=== PATIENT | male | born 1970 | race African-American/Black ===

== ENCOUNTER 2016-09-19 18:38 | Emergency (ER) | payer MEDICAID ==
[~2016-09-19] VITALS: Ht 170.2 cm; Wt 76.0 kg
[~2016-09-19 18:38] MED LIST: ABIL5 PO; Folic Acid PO; HYDROCODONE; IBUPROFEN PO; Metoprolol Tartrate PO; Multivitamins,Ther W-Minerals PO; PHEN100C4 PO; RISP0.5T PO
[2016-09-19] MEDS ORDERED: LIDOCAINE HCL 1% 20ML VIAL (Pyxis) INJ MC ONE (19:00)
[2016-09-19 19:08] LABS: BASOPHILS % 0.6 % (0.0-2.0); EOSINOPHILS % 0.7 % (0.0-5.0); HEMOGLOBIN. 10.8 g/dL (14.0-18.0); LYMPHOCYTES % 26.7 % (20.0-50.0); MEAN CORPUSCULAR HEMOGLOBIN 32.5 pg (28.0-32.0); MEAN CORPUSCULAR VOLUME 96.3 fL (80.0-94.0); MEAN PLATELET VOLUME 7.5 fl (7.4-10.4); MONOCYTES % 9.3 % (2.0-8.0); NEUTROPHILS % 62.7 % (40.0-76.0); PLATELET 78 x1000/uL (130-400); RED BLOOD CELL COUNT 3.32 mill/uL (4.7-6.1); RED CELL DISTRIBUTION WIDTH 15.5 % (11.6-14.6)
[2016-09-19 19:17] LABS: CARBON DIOXIDE 19 mEq/L (21-32); CHLORIDE 97 mEq/L (98-107); ETHANOL BLOOD 11 mg/dL
[2016-09-19 19:20] LABS: PHENYTOIN < 0.4 ug/mL (10-20)
[2016-09-19] MEDS ORDERED: PHENYTOIN SODIUM 1,000 MG in SODIUM CHLORIDE 0.9% 100 ML IV ONE (19:30)
[2016-09-19 20:59] LABS: CLARITY URINE CLEAR (CLEAR); COLOR URINE YELLOW (YELLOW); GLUCOSE URINE NEGATIVE (NEGATIVE); KETONES URINE NEGATIVE (NEGATIVE); LEUKOCYTE ESTERASE URINE NEGATIVE (NEGATIVE); NITRITE URINE NEGATIVE (NEGATIVE); OCCULT BLOOD URINE NEGATIVE (NEGATIVE); PROTEIN URINE 2+ (NEGATIVE); SPECIFIC GRAVITY URINE 1.017 (1.005-1.030)
[2016-09-19 21:13] LABS: *AMPHETAMINES SCREEN URINE NEGATIVE (NEGATIVE); *BARBITURATES SCREEN URINE NEGATIVE (NEGATIVE); *BENZODIAZEPINES SCREEN URINE NEGATIVE (NEGATIVE); *COCAINE SCREEN URINE NEGATIVE (NEGATIVE); CANNABINOID URINE SCREEN PRESUMTIVE POSITIVE (NEGATIVE); METHADONE URINE SCREEN NEGATIVE (NEGATIVE); OPIATES URINE SCREEN NEGATIVE (NEGATIVE); PHENCYCLIDINE URINE SCREEN NEGATIVE (NEGATIVE)
[2016-09-19 22:15] VITALS: BP 150/88
== END 2016-09-19 22:15 | disposition home or self-care (01) ==
LOC: ER 18:58
DX: R56.9 Unspecified convulsions (principal); S00.01XA Abrasion of scalp, initial encounter; H66.92 Otitis media, unspecified, left ear; I10 Essential (primary) hypertension; R79.1 Abnormal coagulation profile; W18.30XA Fall on same level, unspecified, initial encounter; Y93.89 Activity, other specified; Y92.89 Other specified places as the place of occurrence of the external cause; Y99.8 Other external cause status
CPT/HCPCS: 36415; 70450; 72125; 80053; 80185; 80305; 81001; 85025; 96365; 96366; 99285; G0482; J1165; J7040; J3490; J7050

== ENCOUNTER 2016-10-18 15:03 | Inpatient (IN) | payer MEDICAID, OTHER ==
[~2016-10-18] VITALS: Ht 170.2 cm; Wt 68.9 kg
[~2016-10-18 15:03] MED LIST changes: +IOHEXOL-300 100 ML BOTTLE ONE; +SODIUM CHLORIDE 0.9% 10ML VIAL ONE
[2016-10-18] MEDS ORDERED: SODIUM CHLORIDE 0.9% 1,000 ML IV ONE (15:27)
[2016-10-18] MEDS ORDERED: PANTOPRAZOLE SODIUM 40 MG/VIAL IV STA (15:27)
[2016-10-18 15:50] LABS: BASOPHILS % 0.4 % (0.0-2.0); EOSINOPHILS % 1.3 % (0.0-5.0); HEMATOCRIT. 34.2 % (42.0-52.0); HEMOGLOBIN. 12.1 g/dL (14.0-18.0); LYMPHOCYTES % 25.2 % (20.0-50.0); MEAN CORPUSCULAR HEMOGLOBIN 33.3 pg (28.0-32.0); MEAN CORPUSCULAR VOLUME 93.7 fL (80.0-94.0); MEAN PLATELET VOLUME 8.1 fl (7.4-10.4); MONOCYTES % 7.7 % (2.0-8.0); NEUTROPHILS % 65.4 % (40.0-76.0); PLATELET 61 x1000/uL (130-400); RED BLOOD CELL COUNT 3.65 mill/uL (4.7-6.1); RED CELL DISTRIBUTION WIDTH 13.3 % (11.6-14.6)
[2016-10-18 16:00] LABS: CARBON DIOXIDE 31 mEq/L (21-32); CHLORIDE 94 mEq/L (98-107); ETHANOL BLOOD < 10 mg/dL
[2016-10-18 16:07] LABS: PROTHROMBIN TIME 10.5 sec
[2016-10-18] MEDS ORDERED: SODIUM CHLORIDE 0.9% 1000ML BAG (SEPSIS BOLUS) IV ONE (16:15)
[2016-10-18] MEDS ORDERED: CEFTRIAXONE 1 G PREMIX 50 ML IV ONE (16:30)
[2016-10-18 17:16] LABS: CLARITY URINE CLEAR (CLEAR); COLOR URINE DARK YELLOW (YELLOW); GLUCOSE URINE NEGATIVE (NEGATIVE); KETONES URINE TRACE (NEGATIVE); LEUKOCYTE ESTERASE URINE NEGATIVE (NEGATIVE); NITRITE URINE NEGATIVE (NEGATIVE); OCCULT BLOOD URINE NEGATIVE (NEGATIVE); PH URINE 5.5 (4.5-8.0); PROTEIN URINE 2+ (NEGATIVE); SPECIFIC GRAVITY URINE 1.018 (1.005-1.030)
[2016-10-18 17:36] LABS: *AMPHETAMINES SCREEN URINE NEGATIVE (NEGATIVE); *BARBITURATES SCREEN URINE NEGATIVE (NEGATIVE); *BENZODIAZEPINES SCREEN URINE NEGATIVE (NEGATIVE); *COCAINE SCREEN URINE NEGATIVE (NEGATIVE); CANNABINOID URINE SCREEN PRESUMTIVE POSITIVE (NEGATIVE); METHADONE URINE SCREEN NEGATIVE (NEGATIVE); OPIATES URINE SCREEN PRESUMTIVE POSITIVE (NEGATIVE); PHENCYCLIDINE URINE SCREEN NEGATIVE (NEGATIVE)
[2016-10-18] MEDS ORDERED: POTASSIUM CHLORIDE 20MEQ TABLET SR PO ONE (18:30)
[2016-10-18] MEDS ORDERED: MAGNESIUM/ALUMINUM HYDROXIDE/SIMETHICONE 30ML UDC PO PRN (19:15)
[2016-10-18] MEDS ORDERED: IPRATROPIUM/ALBUTEROL 0.5-3(2.5)MG/3ML NEB INH PRN (19:15)
[2016-10-18] MEDS ORDERED: LORAZEPAM 2MG/ML CPJ IV PRN (19:15)
[2016-10-18] MEDS ORDERED: ONDANSETRON HCL 4MG/2ML VIAL IV PRN (19:15)
[2016-10-18] MEDS ORDERED: ACETAMINOPHEN 325MG TABLET PO PRN (19:15)
[2016-10-18] MEDS ORDERED: DOCUSATE SODIUM 100MG CAPSULE PO PRN (19:15)
[2016-10-18] MEDS ORDERED: GUAIFENESIN 200MG/10ML SUGAR FREE UDC PO PRN (19:15)
[2016-10-18] MEDS: HYDROCODONE/ACETAMINOPHEN 5/325MG TABLET PO PRN (21:11)
[2016-10-18] MEDS: SODIUM CHLORIDE 0.9% 1,000 ML IV SCH (22:40)
[2016-10-18 23:00] VITALS: BP 165/110
[2016-10-19] VITALS: BP 145/103
[2016-10-19] MEDS: CLONIDINE 0.1MG TABLET PO PRN ×3 (00:17→19:57)
[2016-10-19] MEDS ORDERED: MVI, ADULT NO.1 10 ML, FOLIC ACID 1 MG, THIAMINE HCL 100 MG in SODIUM CHLORIDE 0.9% 1,0... IV NR ×4 (02:00)
[2016-10-19 04:00] VITALS: BP 148/102
[2016-10-19 06:34] LABS: T4 FREE 0.84 ng/dL (0.76-1.46)
[2016-10-19 08:00] VITALS: BP 153/105
[2016-10-19] MEDS: HYDROCODONE/ACETAMINOPHEN 5/325MG TABLET PO PRN ×3 (09:14→20:00)
[2016-10-19 12:00] VITALS: BP 147/109
[2016-10-19] MEDS: SODIUM CHLORIDE 0.9% 1,000 ML IV SCH ×2 (15:59→16:00)
[2016-10-19 16:00] VITALS: BP 144/96
[2016-10-19 20:00] VITALS: BP 157/111
[2016-10-20] VITALS: BP 160/109
[2016-10-20] MEDS: CLONIDINE 0.1MG TABLET PO PRN ×2 (00:58→08:14)
[2016-10-20] MEDS: SODIUM CHLORIDE 0.9% 1,000 ML IV SCH ×3 (00:59→20:22)
[2016-10-20 04:00] VITALS: BP 139/96
[2016-10-20 07:02] LABS: CARBON DIOXIDE 30 mEq/L (21-32); CHLORIDE 99 mEq/L (98-107)
[2016-10-20 08:00] VITALS: BP 192/124
[2016-10-20 09:50] LABS: BASOPHILS % 0.7 % (0.0-2.0); EOSINOPHILS % 3.2 % (0.0-5.0); HEMATOCRIT. 30.2 % (42.0-52.0); HEMOGLOBIN. 10.5 g/dL (14.0-18.0); LYMPHOCYTES % 35.5 % (20.0-50.0); MEAN CORPUSCULAR HEMOGLOBIN 32.8 pg (28.0-32.0); MEAN CORPUSCULAR VOLUME 94.6 fL (80.0-94.0); MONOCYTES % 9.7 % (2.0-8.0); NEUTROPHILS % 50.9 % (40.0-76.0); RED BLOOD CELL COUNT 3.19 mill/uL (4.7-6.1); RED CELL DISTRIBUTION WIDTH 13.4 % (11.6-14.6)
[2016-10-20 09:55] LABS: PLATELET 38 x1000/uL (130-400)
[2016-10-20] MEDS ORDERED: POTASSIUM CHLORIDE 20MEQ TABLET SR PO NR ×2 (10:45→12:00)
[2016-10-20 11:37] LABS: PLATELET ESTIMATE MARKEDLY DECREASED
[2016-10-20 12:00] VITALS: BP 145/104
[2016-10-20] MEDS ORDERED: LORAZEPAM 2MG/ML CPJ IM PRN (12:00)
[2016-10-20] MEDS: FOLIC ACID 1MG TABLET PO SCH (12:47)
[2016-10-20] MEDS: MULTIVITAMINS,THER W-MINERALS TABLET PO SCH (12:48)
[2016-10-20] MEDS: NIFEDIPINE XL 60MG TAB PO SCH (12:49)
[2016-10-20] MEDS: THIAMINE HCL 100MG TABLET PO SCH (12:54)
[2016-10-20] MEDS: HYDROCODONE/ACETAMINOPHEN 5/325MG TABLET PO PRN ×2 (12:54→20:23)
[2016-10-20] MEDS: CHLORDIAZEPOXIDE 25MG CAPSULE PO SCH ×2 (14:12→21:32)
[2016-10-20 16:00] VITALS: BP 151/106
[2016-10-20 20:00] VITALS: BP 133/91
[2016-10-20] MEDS: LEVETIRACETAM 500MG/5ML CUP PO SCH (21:32)
[2016-10-21] VITALS: BP 128/87
[2016-10-21 04:00] VITALS: BP 125/85
[2016-10-21 06:17] LABS: BASOPHILS % 0.7 % (0.0-2.0); EOSINOPHILS % 3.9 % (0.0-5.0); HEMATOCRIT. 28.5 % (42.0-52.0); HEMOGLOBIN. 9.8 g/dL (14.0-18.0); LYMPHOCYTES % 40.6 % (20.0-50.0); MEAN CORPUSCULAR HEMOGLOBIN 32.8 pg (28.0-32.0); MEAN CORPUSCULAR VOLUME 95.3 fL (80.0-94.0); MEAN PLATELET VOLUME 8.9 fl (7.4-10.4); MONOCYTES % 10.1 % (2.0-8.0); NEUTROPHILS % 44.7 % (40.0-76.0); RED BLOOD CELL COUNT 2.99 mill/uL (4.7-6.1); RED CELL DISTRIBUTION WIDTH 13.2 % (11.6-14.6)
[2016-10-21] MEDS: CHLORDIAZEPOXIDE 25MG CAPSULE PO SCH ×3 (06:20→21:59)
[2016-10-21] MEDS: SODIUM CHLORIDE 0.9% 1,000 ML IV SCH ×2 (06:21→18:14)
[2016-10-21 07:12] LABS: AMYLASE 95 IU/L (25-115); CARBON DIOXIDE 26 mEq/L (21-32); CHLORIDE 103 mEq/L (98-107)
[2016-10-21 08:00] VITALS: BP 138/96
[2016-10-21 08:08] LABS: PLATELET 43 x1000/uL (130-400)
[2016-10-21] MEDS: NIFEDIPINE XL 60MG TAB PO SCH (09:27)
[2016-10-21] MEDS: MULTIVITAMINS,THER W-MINERALS TABLET PO SCH (09:27)
[2016-10-21] MEDS: FOLIC ACID 1MG TABLET PO SCH (09:27)
[2016-10-21] MEDS: THIAMINE HCL 100MG TABLET PO SCH (09:27)
[2016-10-21] MEDS: LEVETIRACETAM 500MG/5ML CUP PO SCH ×2 (09:27→20:35)
[2016-10-21] MEDS ORDERED: MAGNESIUM 2 G PREMIX 50 ML IV NR (09:30)
[2016-10-21] MEDS: HYDROCODONE/ACETAMINOPHEN 5/325MG TABLET PO PRN ×2 (09:57→20:36)
[2016-10-21] MEDS ORDERED: LORAZEPAM 2MG/ML CPJ IV PRN (11:13)
[2016-10-21] MEDS ORDERED: POTASSIUM CHLORIDE 20MEQ TABLET SR PO SCH (11:45)
[2016-10-21 12:00] VITALS: BP 130/94
[2016-10-21 16:00] VITALS: BP 139/94
[2016-10-21 20:00] VITALS: BP 122/82
[2016-10-22] VITALS: BP 134/91
[2016-10-22 04:00] VITALS: BP 116/77
[2016-10-22] MEDS: CHLORDIAZEPOXIDE 25MG CAPSULE PO SCH ×3 (06:34→21:31)
[2016-10-22] MEDS: SODIUM CHLORIDE 0.9% 1,000 ML IV SCH ×2 (06:34→11:26)
[2016-10-22 07:55] LABS: CARBON DIOXIDE 28 mEq/L (21-32); CHLORIDE 104 mEq/L (98-107); TOTAL IRON BINDING CAPACITY 252 ug/dL (250-450)
[2016-10-22 07:58] LABS: AMYLASE 70 IU/L (25-115)
[2016-10-22 08:00] VITALS: BP 133/91
[2016-10-22 08:10] LABS: HEMATOCRIT. 29.5 % (42.0-52.0); MEAN CORPUSCULAR HEMOGLOBIN 32.6 pg (28.0-32.0); MEAN PLATELET VOLUME 8.8 fl (7.4-10.4); PLATELET 67 x1000/uL (130-400); RED BLOOD CELL COUNT 3.07 mill/uL (4.7-6.1); RED CELL DISTRIBUTION WIDTH 13.6 % (11.6-14.6)
[2016-10-22] MEDS: FOLIC ACID 1MG TABLET PO SCH (08:44)
[2016-10-22] MEDS: NIFEDIPINE XL 60MG TAB PO SCH (08:44)
[2016-10-22] MEDS: LEVETIRACETAM 500MG/5ML CUP PO SCH ×2 (08:44→21:31)
[2016-10-22] MEDS: THIAMINE HCL 100MG TABLET PO SCH (08:44)
[2016-10-22] MEDS: MULTIVITAMINS,THER W-MINERALS TABLET PO SCH (08:45)
[2016-10-22 11:30] LABS: PLATELET ESTIMATE DECREASED
[2016-10-22] MEDS: HYDROCODONE/ACETAMINOPHEN 5/325MG TABLET PO PRN ×2 (12:13→21:32)
[2016-10-22 16:00] VITALS: BP 126/87
[2016-10-22 20:00] VITALS: BP 127/81
[2016-10-22] MEDS ORDERED: MAGNESIUM 2 G PREMIX 50 ML IV NR (20:00)
[2016-10-23] MEDS: SODIUM CHLORIDE 0.9% 1,000 ML IV SCH (01:51)
[2016-10-23 04:00] VITALS: BP 162/60
[2016-10-23] MEDS: CHLORDIAZEPOXIDE 25MG CAPSULE PO SCH (06:00)
[2016-10-23 06:33] LABS: HEMATOCRIT. 28.7 % (42.0-52.0); HEMOGLOBIN. 9.8 g/dL (14.0-18.0); MEAN CORPUSCULAR HEMOGLOBIN 32.8 pg (28.0-32.0); MEAN CORPUSCULAR VOLUME 95.6 fL (80.0-94.0); MEAN PLATELET VOLUME 8.9 fl (7.4-10.4); PLATELET 92 x1000/uL (130-400); RED CELL DISTRIBUTION WIDTH 13.5 % (11.6-14.6)
[2016-10-23 07:15] LABS: CHLORIDE 104 mEq/L (98-107)
[2016-10-23 07:21] LABS: AMYLASE 100 IU/L (25-115); CARBON DIOXIDE 26 mEq/L (21-32)
[2016-10-23 08:00] VITALS: BP 154/94
[2016-10-23] MEDS: MULTIVITAMINS,THER W-MINERALS TABLET PO SCH (08:14)
[2016-10-23] MEDS: NIFEDIPINE XL 60MG TAB PO SCH (08:14)
[2016-10-23] MEDS: LEVETIRACETAM 500MG/5ML CUP PO SCH (08:14)
[2016-10-23] MEDS: THIAMINE HCL 100MG TABLET PO SCH (08:14)
[2016-10-23] MEDS: FOLIC ACID 1MG TABLET PO SCH (08:14)
[2016-10-23 12:11] VITALS: BP 135/86
[2016-10-23 13:14] VITALS: BP 135/86
[2016-10-23 14:16] LABS: PLATELET ESTIMATE DECREASED
== END 2016-10-23 13:45 | disposition home or self-care (01) | DRG 282 ==
LOC: ER 15:04 → 5WST 16:25 → EDBEDREQ 16:28 → ENRESERV 19:59
PROVIDERS: ADMIT Internal Medicine; ATTEND Internal Medicine
DX: K85.20 Alcohol induced acute pancreatitis without necrosis or infection (principal); D61.818 Other pancytopenia; D68.4 Acquired coagulation factor deficiency; E87.8 Other disorders of electrolyte and fluid balance, not elsewhere classified; D69.59 Other secondary thrombocytopenia; K74.60 Unspecified cirrhosis of liver; K92.2 Gastrointestinal hemorrhage, unspecified; R56.9 Unspecified convulsions; K76.0 Fatty (change of) liver, not elsewhere classified; E83.42 Hypomagnesemia; J44.9 Chronic obstructive pulmonary disease, unspecified; D64.9 Anemia, unspecified; E87.6 Hypokalemia; F10.20 Alcohol dependence, uncomplicated; Y90.0 Blood alcohol level of less than 20 mg/100 ml; F17.210 Nicotine dependence, cigarettes, uncomplicated; I10 Essential (primary) hypertension; K21.9 Gastro-esophageal reflux disease without esophagitis; F12.10 Cannabis abuse, uncomplicated; K86.1 Other chronic pancreatitis; Z79.899 Other long term (current) drug therapy; Z59.0 Homelessness
CPT/HCPCS: 36415; 74178; 80048; 80053; 80305; 81001; 82150; 82270; 82728; 83540; 83550; 83605; 83690; 83735; 84439; 84443; 85025; 85610; 87040; 87086; 87186; 87493; 93005; 96361; 96365; 96375; 99285; A4216; C1893; C9113; G0482; J0696; J3411; J3475; J3490; J7030; Q9967

== ENCOUNTER 2019-10-26 16:40 | Emergency (ER) | payer MEDICAID ==
[~2019-10-26] VITALS: Ht 170.2 cm; Wt 68.0 kg
[~2019-10-26 16:40] MED LIST changes: -IOHEXOL-300 100 ML BOTTLE ONE; -RISP0.5T PO; +RISP05 PO; -SODIUM CHLORIDE 0.9% 10ML VIAL ONE
[2019-10-26 20:11] VITALS: BP 140/70
== END 2019-10-26 20:18 | disposition home or self-care (01) ==
LOC: ER 16:40
DX: Z76.0 Encounter for issue of repeat prescription (principal); G40.909 Epilepsy, unspecified, not intractable, without status epilepticus; I10 Essential (primary) hypertension; Z86.19 Personal history of other infectious and parasitic diseases
CPT/HCPCS: 99281

== ENCOUNTER 2020-05-05 09:59 | Emergency (ER) | payer MEDICAID ==
[~2020-05-05] VITALS: Ht 170.2 cm; Wt 67.0 kg
[2020-05-05 10:09] VITALS: BP 134/69
[2020-05-05] MEDS ORDERED: FLUORESCEIN SODIUM 1MG/STRIP RIGHTEYE ONE (10:15)
[2020-05-05] MEDS ORDERED: ACETAMINOPHEN 325MG TABLET PO ONE (10:15)
[2020-05-05] MEDS ORDERED: TETRACAINE 0.5% OPHTH DROPS 4ML RIGHTEYE ONE (11:15)
== END 2020-05-05 14:48 | disposition home or self-care (01) ==
LOC: ER 10:09
DX: S05.01XA Injury of conjunctiva and corneal abrasion without foreign body, right eye, initial encounter (principal); R56.9 Unspecified convulsions; X58.XXXA Exposure to other specified factors, initial encounter; Y93.89 Activity, other specified; Y92.9 Unspecified place or not applicable
CPT/HCPCS: 99284

== ENCOUNTER 2021-09-03 18:04 | Inpatient (IN) | payer MEDICAID ==
[~2021-09-03] VITALS: Ht 170.2 cm; Wt 63.5 kg
[2021-09-03 19:45] LABS: BASOPHILS % 0.4 % (0.0-2.0); HEMATOCRIT. 40.1 % (42.0-52.0); HEMOGLOBIN. 13.9 g/dL (14.0-18.0); LYMPHOCYTES % 7.4 % (20.0-50.0); MEAN CORPUSCULAR HEMOGLOBIN 31.2 pg (28.0-32.0); MEAN PLATELET VOLUME 7.4 fl (7.4-10.4); MONOCYTES % 2.9 % (2.0-8.0); NEUTROPHILS % 89.3 % (40.0-76.0); PLATELET 147 x1000/uL (130-400); RED BLOOD CELL COUNT 4.45 mill/uL (4.7-6.1); RED CELL DISTRIBUTION WIDTH 13.7 % (11.6-14.6)
[2021-09-03 19:52] LABS: CHLORIDE 97 mEq/L (98-107)
[2021-09-04] MEDS ORDERED: ONDANSETRON HCL 4MG/2ML INJ IV STA (01:12)
[2021-09-04] MEDS ORDERED: MORPHINE SULFATE 4 MG/ML CPJ (NOT FOR IM USE) IV STA (01:12)
[2021-09-04] MEDS ORDERED: SODIUM CHLORIDE 0.9% 1,000 ML IV ONE (01:15)
[2021-09-04] MEDS ORDERED: MORPHINE SULFATE 4 MG/ML CPJ (NOT FOR IM USE) IV ONE (05:45)
[2021-09-04] MEDS ORDERED: MORPHINE SULFATE 4 MG/ML CPJ (NOT FOR IM USE) IV NR (06:00)
[2021-09-04 09:12] LABS: CLARITY URINE CLEAR (CLEAR); COLOR URINE YELLOW (YELLOW); KETONES URINE 1+ (NEGATIVE); LEUKOCYTE ESTERASE URINE NEGATIVE (NEGATIVE); NITRITE URINE NEGATIVE (NEGATIVE); OCCULT BLOOD URINE NEGATIVE (NEGATIVE); PROTEIN URINE 1+ (NEGATIVE); SPECIFIC GRAVITY URINE 1.019 (1.005-1.030)
[2021-09-04] MEDS ORDERED: ONDANSETRON HCL 4MG/2ML INJ IV PRN (11:00)
[2021-09-04] MEDS ORDERED: LORAZEPAM 0.5MG TABLET PO PRN (11:00)
[2021-09-04] MEDS: SODIUM CHLORIDE 0.9% 1,000 ML IV SCH ×2 (11:00→22:58)
[2021-09-04] MEDS ORDERED: IPRATROPIUM/ALBUTEROL 0.5-3(2.5)MG/3ML NEB HHN PRN (11:00)
[2021-09-04] MEDS ORDERED: ACETAMINOPHEN 325MG TABLET PO PRN (11:00)
[2021-09-04] MEDS ORDERED: PANTOPRAZOLE SODIUM 40 MG/VIAL IV SCH (11:00)
[2021-09-04 11:06] VITALS: BP 174/84
[2021-09-04] MEDS ORDERED: *PATIENT'S OWN MEDICATION STORAGE XX SCH (11:15)
[2021-09-04 12:00] VITALS: BP 153/93
[2021-09-04] MEDS ORDERED: PHEN50TA2 PO (12:43)
[2021-09-04] MEDS ORDERED: P20 MT (12:43)
[2021-09-04] MEDS ORDERED: PRED5DRO22 BOTHEYE (12:43)
[2021-09-04] MEDS ORDERED: AMLO5TAB88 PO (12:43)
[2021-09-04] MEDS ORDERED: ASOU BOTHEYE (12:43)
[2021-09-04] MEDS ORDERED: METF-416 MT (12:43)
[2021-09-04] MEDS ORDERED: KCL 20MEQ/100ML PREMIX 100 ML IV NR (13:00)
[2021-09-04] MEDS: MORPHINE SULFATE 2 MG/ML CPJ (NOT FOR IM USE) IV PRN (13:17)
[2021-09-04] MEDS: ARIPIPRAZOLE 5MG TABLET PO SCH (13:30)
[2021-09-04] MEDS ORDERED: PHENYTOIN SODIUM 100MG/2ML VIAL IV NR (13:45)
[2021-09-04] MEDS: MULTIVITAMINS,THER W-MINERALS TABLET PO SCH (13:58)
[2021-09-04] MEDS: CHLORDIAZEPOXIDE 25MG CAPSULE PO SCH ×2 (13:58→22:51)
[2021-09-04] MEDS: FOLIC ACID 1MG TABLET PO SCH (13:58)
[2021-09-04] MEDS: THIAMINE HCL 100MG TABLET PO SCH (13:58)
[2021-09-04] MEDS: PHENYTOIN SODIUM 100MG/2ML VIAL IV SCH ×2 (13:59→23:07)
[2021-09-04] MEDS: AMLODIPINE 5MG TABLET PO SCH (13:59)
[2021-09-04] MEDS: NICOTINE 7MG PATCH TD SCH (15:46)
[2021-09-04 16:00] VITALS: BP 169/96
[2021-09-04 17:09] LABS: *AMPHETAMINES SCREEN URINE NEGATIVE (NEGATIVE); *BARBITURATES SCREEN URINE NEGATIVE (NEGATIVE); *BENZODIAZEPINES SCREEN URINE NEGATIVE (NEGATIVE); *COCAINE SCREEN URINE NEGATIVE (NEGATIVE); CANNABINOID URINE SCREEN PRESUMTIVE POSITIVE (NEGATIVE); METHADONE URINE SCREEN NEGATIVE (NEGATIVE); OPIATES URINE SCREEN PRESUMTIVE POSITIVE (NEGATIVE); PHENCYCLIDINE URINE SCREEN NEGATIVE (NEGATIVE)
[2021-09-04] MEDS ORDERED: NON FORMULARY PATIENT HOME MED OP SCH (18:00)
[2021-09-04] MEDS: CLONIDINE 0.1MG TABLET PO PRN (18:54)
[2021-09-04] MEDS: PANTOPRAZOLE SODIUM 40 MG/VIAL IV SCH (18:54)
[2021-09-04 19:52] VITALS: BP 106/66
[2021-09-05 04:07] VITALS: BP 149/110
[2021-09-05] MEDS: MORPHINE SULFATE 2 MG/ML CPJ (NOT FOR IM USE) IV PRN ×3 (05:37→20:37)
[2021-09-05] MEDS: PHENYTOIN SODIUM 100MG/2ML VIAL IV SCH ×3 (05:38→22:19)
[2021-09-05 06:20] LABS: BASOPHILS % 0.2 % (0.0-2.0); EOSINOPHILS % 1.7 % (0.0-5.0); HEMOGLOBIN. 13.4 g/dL (14.0-18.0); LYMPHOCYTES % 26.1 % (20.0-50.0); MEAN CORPUSCULAR VOLUME 90.3 fL (80.0-94.0); MEAN PLATELET VOLUME 7.5 fl (7.4-10.4); MONOCYTES % 7.7 % (2.0-8.0); NEUTROPHILS % 64.3 % (40.0-76.0); PLATELET 125 x1000/uL (130-400); RED BLOOD CELL COUNT 4.31 mill/uL (4.7-6.1); RED CELL DISTRIBUTION WIDTH 13.5 % (11.6-14.6)
[2021-09-05 06:23] LABS: INR 0.9; PROTHROMBIN TIME 9.9 sec (9.6-11.0)
[2021-09-05 06:28] LABS: CHLORIDE 101 mEq/L (98-107)
[2021-09-05] MEDS: CHLORDIAZEPOXIDE 25MG CAPSULE PO SCH ×3 (06:40→20:37)
[2021-09-05 06:51] LABS: HEPATITIS B SURFACE ANTIGEN NEGATIVE
[2021-09-05 08:01] VITALS: BP 97/59
[2021-09-05] MEDS: AMLODIPINE 5MG TABLET PO SCH (09:00)
[2021-09-05] MEDS: NICOTINE 7MG PATCH TD SCH (09:47)
[2021-09-05] MEDS: ARIPIPRAZOLE 5MG TABLET PO SCH (09:47)
[2021-09-05] MEDS: ACETAMINOPHEN 325MG TABLET PO PRN (09:47)
[2021-09-05] MEDS: PANTOPRAZOLE SODIUM 40 MG/VIAL IV SCH ×2 (09:47→16:40)
[2021-09-05] MEDS: FOLIC ACID 1MG TABLET PO SCH (09:48)
[2021-09-05] MEDS: DOCUSATE SODIUM 100MG CAPSULE PO SCH (09:48)
[2021-09-05] MEDS: MULTIVITAMINS,THER W-MINERALS TABLET PO SCH (09:48)
[2021-09-05] MEDS: NAPHAZOLINE HCL/PHENIR MAL OPHTH SOLN 15ML BOTHEYE SCH (09:48)
[2021-09-05] MEDS: THIAMINE HCL 100MG TABLET PO SCH (09:48)
[2021-09-05] MEDS: PREDNISOLONE ACETATE 1% OPHTH DROPS 5ML BOTHEYE SCH (09:49)
[2021-09-05] MEDS: ATROPINE SULFATE 1% OPHTH 2ML BOTHEYE SCH ×2 (09:49→16:40)
[2021-09-05] MEDS: CLONIDINE 0.1MG TABLET PO PRN (11:51)
[2021-09-05 12:00] VITALS: BP 149/102
[2021-09-05] MEDS: SODIUM CHLORIDE 0.9% 1,000 ML IV SCH (12:32)
[2021-09-05 16:00] VITALS: BP 127/87
[2021-09-05] MEDS ORDERED: POTASSIUM CHLORIDE 20MEQ TABLET SR PO SCH (16:15)
[2021-09-05 20:00] VITALS: BP 134/92
[2021-09-06] VITALS: BP 130/82
[2021-09-06] MEDS: SODIUM CHLORIDE 0.9% 1,000 ML IV SCH ×2 (01:29→13:00)
[2021-09-06 04:00] VITALS: BP 157/107
[2021-09-06] MEDS: MORPHINE SULFATE 2 MG/ML CPJ (NOT FOR IM USE) IV PRN ×2 (04:40→14:44)
[2021-09-06] MEDS: CLONIDINE 0.1MG TABLET PO PRN ×2 (04:40→21:11)
[2021-09-06] MEDS: CHLORDIAZEPOXIDE 25MG CAPSULE PO SCH ×3 (06:17→21:12)
[2021-09-06] MEDS: PHENYTOIN SODIUM 100MG/2ML VIAL IV SCH ×3 (06:17→21:12)
[2021-09-06 07:44] LABS: BASOPHILS % 0.4 % (0.0-2.0); HEMATOCRIT. 36.1 % (42.0-52.0); HEMOGLOBIN. 12.2 g/dL (14.0-18.0); LYMPHOCYTES % 20.3 % (20.0-50.0); MEAN CORPUSCULAR HEMOGLOBIN 30.5 pg (28.0-32.0); MEAN CORPUSCULAR VOLUME 90.2 fL (80.0-94.0); MEAN PLATELET VOLUME 7.5 fl (7.4-10.4); MONOCYTES % 8.6 % (2.0-8.0); NEUTROPHILS % 68.7 % (40.0-76.0); PLATELET 114 x1000/uL (130-400); RED CELL DISTRIBUTION WIDTH 13.8 % (11.6-14.6)
[2021-09-06 08:00] VITALS: BP 118/94
[2021-09-06 08:17] LABS: CHLORIDE 104 mEq/L (98-107)
[2021-09-06 08:27] LABS: CREATINE KINASE 14 IU/L (39-308)
[2021-09-06] MEDS: ARIPIPRAZOLE 5MG TABLET PO SCH (08:50)
[2021-09-06] MEDS: THIAMINE HCL 100MG TABLET PO SCH (08:50)
[2021-09-06] MEDS: AMLODIPINE 5MG TABLET PO SCH (08:52)
[2021-09-06] MEDS: FOLIC ACID 1MG TABLET PO SCH (08:52)
[2021-09-06] MEDS: DOCUSATE SODIUM 100MG CAPSULE PO SCH (08:52)
[2021-09-06] MEDS: MULTIVITAMINS,THER W-MINERALS TABLET PO SCH (08:53)
[2021-09-06] MEDS ORDERED: FAMOTIDINE 20MG/2ML VIAL IV SCH (09:00)
[2021-09-06] MEDS: NICOTINE 7MG PATCH TD SCH (09:01)
[2021-09-06] MEDS: OMEPRAZOLE 20MG CAPSULE EXTENDED RELEASE PO SCH ×2 (10:07→21:12)
[2021-09-06] MEDS: ATROPINE SULFATE 1% OPHTH 2ML BOTHEYE SCH ×2 (10:08→19:08)
[2021-09-06] MEDS: PREDNISOLONE ACETATE 1% OPHTH DROPS 5ML BOTHEYE SCH (10:08)
[2021-09-06] MEDS: NAPHAZOLINE HCL/PHENIR MAL OPHTH SOLN 15ML BOTHEYE SCH (10:12)
[2021-09-06] MEDS ORDERED: KCL 20MEQ/100ML PREMIX 100 ML IV NR (11:00)
[2021-09-06 12:28] VITALS: BP 150/94
[2021-09-06 16:00] VITALS: BP 131/85
[2021-09-06] MEDS ORDERED: NALOXONE HCL 0.4MG/ML VIAL IV PRN (18:00)
[2021-09-06 20:00] VITALS: BP 167/103
[2021-09-06] MEDS: ACETAMINOPHEN 325MG TABLET PO PRN (21:12)
[2021-09-07] VITALS: BP 137/93
[2021-09-07] MEDS: SODIUM CHLORIDE 0.9% 1,000 ML IV SCH (01:30)
[2021-09-07 04:00] VITALS: BP 135/90
[2021-09-07] MEDS: CHLORDIAZEPOXIDE 25MG CAPSULE PO SCH ×2 (06:01→14:57)
[2021-09-07] MEDS: PHENYTOIN SODIUM 100MG/2ML VIAL IV SCH ×2 (06:01→14:57)
[2021-09-07] MEDS: MORPHINE SULFATE 2 MG/ML CPJ (NOT FOR IM USE) IV PRN (06:05)
[2021-09-07 08:00] VITALS: BP 155/102
[2021-09-07] MEDS: PREDNISOLONE ACETATE 1% OPHTH DROPS 5ML BOTHEYE SCH (08:47)
[2021-09-07] MEDS: NAPHAZOLINE HCL/PHENIR MAL OPHTH SOLN 15ML BOTHEYE SCH (08:47)
[2021-09-07] MEDS: ATROPINE SULFATE 1% OPHTH 2ML BOTHEYE SCH (08:47)
[2021-09-07] MEDS: ARIPIPRAZOLE 5MG TABLET PO SCH (08:48)
[2021-09-07] MEDS: THIAMINE HCL 100MG TABLET PO SCH (08:48)
[2021-09-07] MEDS: MULTIVITAMINS,THER W-MINERALS TABLET PO SCH (08:49)
[2021-09-07] MEDS: FOLIC ACID 1MG TABLET PO SCH (08:49)
[2021-09-07] MEDS: AMLODIPINE 5MG TABLET PO SCH (08:49)
[2021-09-07] MEDS: OMEPRAZOLE 20MG CAPSULE EXTENDED RELEASE PO SCH (08:49)
[2021-09-07] MEDS: DOCUSATE SODIUM 100MG CAPSULE PO SCH (08:51)
[2021-09-07] MEDS: NICOTINE 7MG PATCH TD SCH (08:51)
[2021-09-07 12:00] VITALS: BP 155/102
[2021-09-07] MEDS ORDERED: OMEP20CA14 PO ×2 (12:13)
[2021-09-07] MEDS: CLONIDINE 0.1MG TABLET PO PRN (12:34)
[2021-09-07 14:45] VITALS: BP 135/94
[2021-09-07] MEDS ORDERED: CHLO10CA71 MT ×2 (16:04)
[2021-09-07] MEDS ORDERED: HYDR-4001 MT ×2 (16:04)
[2021-09-07] MEDS ORDERED: SUCRALFATE 1 G/10 ML UDC PO SCH (17:20)
[2021-09-10] MEDS ORDERED: HYDR-4001 MT (12:08)
[2021-09-10] MEDS ORDERED: OMEP20CA14 MT (12:08)
[2021-09-10] MEDS ORDERED: CHLO10CA71 MT (12:08)
== END 2021-09-07 16:00 | disposition home or self-care (01) | DRG 241 ==
LOC: ER 18:04 → MICUSO 09-04 04:36 → EDBEDREQ 09-04 04:44 → EDBEDREQTM 09-04 04:44 → 6EST 09-04 09:42
PROVIDERS: ADMIT Internal Medicine; ATTEND Internal Medicine
DX: K27.9 Peptic ulcer, site unspecified, unspecified as acute or chronic, without hemorrhage or perforation (principal); D69.6 Thrombocytopenia, unspecified; K70.10 Alcoholic hepatitis without ascites; K29.20 Alcoholic gastritis without bleeding; D64.9 Anemia, unspecified; F10.20 Alcohol dependence, uncomplicated; G40.909 Epilepsy, unspecified, not intractable, without status epilepticus; F12.90 Cannabis use, unspecified, uncomplicated; I10 Essential (primary) hypertension; R74.01 Elevation of levels of liver transaminase levels; K86.1 Other chronic pancreatitis; Z79.899 Other long term (current) drug therapy
CPT/HCPCS: 36415; 74176; 76700; 80048; 80053; 80076; 80185; 80305; 81003; 82140; 82550; 85025; 85379; 86705; 86709; 86803; 87340; 93005; 99285; C9113; J1165; J2270; J2405; J3480; J3490; J7030

== ENCOUNTER 2022-09-10 13:27 | Emergency (ER) | payer MEDICAID ==
[~2022-09-10] VITALS: Ht 175.3 cm; Wt 77.0 kg
[~2022-09-10 13:27] MED LIST changes: +AMLO5TAB88 PO; +ASOU BOTHEYE; +BACL-141 PO; +HYDR-4001 MT; +HYDR-4001 PO; -HYDROCODONE; -IBUPROFEN PO; +L25 MT; +METF-416 MT; +NALO4SPR BOTHNSTRLS; +OMEP20CA14 MT; +PRED5DRO22 BOTHEYE
[2022-09-10] MEDS ORDERED: ACETAMINOPHEN 325MG TABLET PO STA (13:36)
[2022-09-10 14:59] LABS: EOSINOPHILS % 0.3 % (0.0-5.0); HEMOGLOBIN. 10.4 g/dL (14.0-18.0); LYMPHOCYTES % 11.7 % (20.0-50.0); MEAN CORPUSCULAR HEMOGLOBIN 27.6 pg (28.0-32.0); MEAN PLATELET VOLUME 6.4 fl (7.4-10.4); MONOCYTES % 7.7 % (2.0-8.0); NEUTROPHILS % 79.3 % (40.0-76.0); PLATELET 278 x1000/uL (130-400); RED BLOOD CELL COUNT 3.76 mill/uL (4.7-6.1); RED CELL DISTRIBUTION WIDTH 17.1 % (11.6-14.6)
[2022-09-10 15:11] LABS: CHLORIDE 104 mEq/L (98-107)
[2022-09-10 15:13] LABS: CLARITY URINE CLEAR (CLEAR); COLOR URINE YELLOW (YELLOW); KETONES URINE 2+ (NEGATIVE); LEUKOCYTE ESTERASE URINE NEGATIVE (NEGATIVE); NITRITE URINE NEGATIVE (NEGATIVE); OCCULT BLOOD URINE TRACE (NEGATIVE); PH URINE 5.5 (4.5-8.0); PROTEIN URINE TRACE (NEGATIVE); UROBILINOGEN URINE 0.2 E.U./dL (0.2-1.0)
[2022-09-10 15:18] LABS: ETHANOL BLOOD 25 mg/dL (-10)
[2022-09-10 16:11] LABS: *AMPHETAMINES SCREEN URINE NEGATIVE (NEGATIVE); *BARBITURATES SCREEN URINE NEGATIVE (NEGATIVE); *BENZODIAZEPINES SCREEN URINE NEGATIVE (NEGATIVE); *COCAINE SCREEN URINE NEGATIVE (NEGATIVE); CANNABINOID URINE SCREEN NEGATIVE (NEGATIVE); METHADONE URINE SCREEN NEGATIVE (NEGATIVE); OPIATES URINE SCREEN NEGATIVE (NEGATIVE); PHENCYCLIDINE URINE SCREEN NEGATIVE (NEGATIVE)
[2022-09-10] MEDS ORDERED: PHENYTOIN 100 MG/4 ML UDC PO ONE (16:15)
[2022-09-10] MEDS ORDERED: PHENYTOIN SODIUM EXTENDED 100MG CAPSULE PO ONE (16:30)
[2022-09-10] MEDS ORDERED: IBUPROFEN 600MG TABLET PO ONE (16:45)
[2022-09-10 17:58] VITALS: BP 150/89
== END 2022-09-10 18:02 | disposition home or self-care (01) ==
LOC: ER 13:27
DX: G40.509 Epileptic seizures related to external causes, not intractable, without status epilepticus (principal); I10 Essential (primary) hypertension; E11.9 Type 2 diabetes mellitus without complications; Z79.899 Other long term (current) drug therapy
CPT/HCPCS: 36415; 80053; 80185; 80305; 80320; 81003; 82962; 85025; 99284; G0480

== ENCOUNTER 2022-12-09 18:28 | Emergency (ER) | payer MEDICAID ==
[~2022-12-09] VITALS: Ht 170.2 cm; Wt 75.0 kg
[2022-12-09 18:31] VITALS: O2SAT 98
[2022-12-09] MEDS ORDERED: PHENYTOIN SODIUM EXTENDED 100MG CAPSULE PO NR (18:45)
[2022-12-09] MEDS ORDERED: PHEN100C4 PO (19:10)
[2022-12-09] MEDS ORDERED: METO25TA6 MT (21:00)
[2022-12-09] MEDS ORDERED: HYDROCODONE/ACETAMINOPHEN 5/325MG TABLET PO ONE (21:00)
[2022-12-09] MEDS ORDERED: AMLO5TAB4 MT (21:00)
[2022-12-09 21:13] VITALS: TEMP 98.7
[2022-12-09 21:14] VITALS: BP 160/91; PULSE 71; RESP 15
== END 2022-12-09 21:23 | disposition home or self-care (01) ==
LOC: ER 18:28
DX: R56.9 Unspecified convulsions (principal)
CPT/HCPCS: 99283

== ENCOUNTER 2022-12-12 22:04 | Emergency (ER) | payer MEDICAID ==
[~2022-12-12] VITALS: Ht 170.2 cm; Wt 68.0 kg
[~2022-12-12 22:04] MED LIST changes: +AMLO5TAB4 MT; +METO25TA6 MT
[2022-12-12 22:43] VITALS: O2SAT 96
[2022-12-12 23:04] LABS: BASOPHILS % 1.1 % (0.0-2.0); EOSINOPHILS % 1.5 % (0.0-5.0); HEMATOCRIT. 32.7 % (42.0-52.0); HEMOGLOBIN. 10.8 g/dL (14.0-18.0); MEAN CORPUSCULAR HEMOGLOBIN 27.6 pg (28.0-32.0); MEAN CORPUSCULAR HGB CONC 33.2 g/dL (31.0-37.0); MEAN CORPUSCULAR VOLUME 83.3 fL (80.0-94.0); MONOCYTES % 9.4 % (2.0-8.0); PLATELET 186 x1000/uL (130-400); RED BLOOD CELL COUNT 3.93 mill/uL (4.7-6.1); RED CELL DISTRIBUTION WIDTH 22.4 % (11.6-14.6); WHITE BLOOD COUNT 4.3 x1000/uL (4.5-11.0)
[2022-12-12 23:10] LABS: CHLORIDE 108 mEq/L (98-107); INDEX HEMOLYSI 1 (1-3); INDEX ICTERIC 1 (1-4); INDEX LIPEMIC 1 (1-3); POTASSIUM 2.9 mEq/L (3.5-5.1); SODIUM 141 mEq/L (136-145)
[2022-12-12 23:20] LABS: ALANINE AMINOTRANSFERASE 44 IU/L (13-61); ALBUMIN 3.4 g/dL (3.4-5.0); ASPARTATE AMINOTRANSFERASE 68 IU/L (15-37); BILIRUBIN TOTAL 0.5 mg/dL (0.1-1.0); CALCIUM 8.2 mg/dL (8.5-10.1); CARBON DIOXIDE 26 mEq/L (21-32); CREATININE 0.7 mg/dL (0.6-1.3); ETHANOL BLOOD 278 mg/dL (-10); GLUCOSE 145 mg/dL (70-105); PROTEIN TOTAL 7.4 g/dL (6.0-8.3); UREA NITROGEN BLOOD 10 mg/dL (7-21)
[2022-12-12] MEDS ORDERED: ACETAMINOPHEN 325MG TABLET PO ONE (23:30)
[2022-12-13 00:04] LABS: DIFFERENTIAL COMMENT 1
[2022-12-13 00:05] LABS: ADD RBC MORPHOLOGY YES
[2022-12-13] MEDS ORDERED: POTASSIUM CHLORIDE 20MEQ TABLET SR PO NR (00:15)
[2022-12-13] MEDS ORDERED: BACITRACIN ZINC OINT UDPKT TOP ONE (00:30)
[2022-12-13] MEDS ORDERED: TETANUS, DIPHTHERIA, PERTUSSIS VAC/PF 0.5ML (>10YR OLD) IM ONE (00:30)
[2022-12-13] MEDS ORDERED: LIDOCAINE HCL/PF 1% 10 MG/ML 5ML VIAL INFIL ONE (00:30)
[2022-12-13 04:48] LABS: PLATELET ESTIMATE NORMAL
[2022-12-13 04:51] LABS: ANISOCYTOSIS 1+
[2022-12-13 06:05] VITALS: BP 146/84; PULSE 86; RESP 18; TEMP 98.2
== END 2022-12-13 06:12 | disposition home or self-care (01) ==
LOC: ER 22:04
DX: F10.129 Alcohol abuse with intoxication, unspecified (principal); Y90.8 Blood alcohol level of 240 mg/100 ml or more; Z79.899 Other long term (current) drug therapy; S09.90XA Unspecified injury of head, initial encounter; X58.XXXA Exposure to other specified factors, initial encounter; Y93.9 Activity, unspecified; Y92.89 Other specified places as the place of occurrence of the external cause; Y99.8 Other external cause status
CPT/HCPCS: 80053; 80320; 85025; 36415; 70450; 99285; 72125; 90715; 90471; Z7610 ×4; J3490; G0480

== ENCOUNTER 2023-02-04 20:07 | Emergency (ER) | payer MEDICAID ==
[~2023-02-04] VITALS: Ht 170.2 cm; Wt 67.0 kg
[2023-02-04 20:12] VITALS: O2SAT 96
[2023-02-04] MEDS ORDERED: TETANUS, DIPHTHERIA, PERTUSSIS VAC/PF 0.5ML (>10YR OLD) IM ONE (20:45)
[2023-02-04] MEDS ORDERED: SODIUM CHLORIDE 0.9% 1,000 ML IV ONE (21:00)
[2023-02-04] MEDS ORDERED: ONDANSETRON HCL 4MG/2ML INJ IV ONE (21:00)
[2023-02-04] MEDS ORDERED: LIDOCAINE HCL/PF 1% 10 MG/ML 5ML VIAL INFIL ONE (21:00)
[2023-02-04] MEDS ORDERED: MORPHINE SULFATE 4 MG/ML CPJ (NOT FOR IM USE) IV ONE (21:00)
[2023-02-04] MEDS ORDERED: LIDOCAINE HCL/EPINEPHRINE 1%-EPI 1:100,000 20 ML VIAL INFIL ONE (21:00)
[2023-02-04] MEDS ORDERED: BACITRACIN ZINC OINT UDPKT TOP ONE (21:00)
[2023-02-04 21:03] LABS: BASOPHILS % 0.6 % (0.0-2.0); EOSINOPHILS % 0.2 % (0.0-5.0); HEMATOCRIT. 30.7 % (42.0-52.0); HEMOGLOBIN. 10.1 g/dL (14.0-18.0); LYMPHOCYTES % 9.1 % (20.0-50.0); MEAN CORPUSCULAR HEMOGLOBIN 28.5 pg (28.0-32.0); MEAN CORPUSCULAR VOLUME 86.5 fL (80.0-94.0); MONOCYTES % 6.9 % (2.0-8.0); NEUTROPHILS % 83.2 % (40.0-76.0); PLATELET 252 x1000/uL (130-400); RED BLOOD CELL COUNT 3.55 mill/uL (4.7-6.1); RED CELL DISTRIBUTION WIDTH 16.1 % (11.6-14.6); WHITE BLOOD COUNT 10.2 x1000/uL (4.5-11.0)
[2023-02-04 21:12] LABS: CHLORIDE 103 mEq/L (98-107); INDEX HEMOLYSI 1 (1-3); INDEX ICTERIC 1 (1-4); INDEX LIPEMIC 1 (1-3); POTASSIUM 3.5 mEq/L (3.5-5.1); SODIUM 139 mEq/L (136-145)
[2023-02-04] MEDS ORDERED: SODIUM CHLORIDE 0.9% 1000ML BAG (SEPSIS BOLUS) IV ONE (21:15)
[2023-02-04] MEDS ORDERED: AZITHROMYCIN 500MG/250ML 250 ML IV ONE (21:15)
[2023-02-04] MEDS ORDERED: CEFTRIAXONE 1GM PREMIX 50 ML IV ONE (21:15)
[2023-02-04 21:23] LABS: ALANINE AMINOTRANSFERASE 23 IU/L (13-61); ALBUMIN 3.2 g/dL (3.4-5.0); ASPARTATE AMINOTRANSFERASE 24 IU/L (15-37); BILIRUBIN TOTAL 0.5 mg/dL (0.1-1.0); CARBON DIOXIDE 29 mEq/L (21-32); CREATININE 0.7 mg/dL (0.6-1.3); GLUCOSE 96 mg/dL (70-105); NT PRO B-TYPE NATRIURETIC PEP 143 pg/mL (5-125); PROTEIN TOTAL 7.3 g/dL (6.0-8.3); TROPONIN I HIGH SENSITIVITY 16 ng/L (<78); UREA NITROGEN BLOOD 12 mg/dL (7-21)
[2023-02-05] MEDS ORDERED: AZITHROMYCIN 500MG/250ML 250 ML IV NR (00:15)
[2023-02-05 02:03] LABS: TROPONIN I HIGH SENSITIVITY 20 ng/L (<78)
[2023-02-05] MEDS ORDERED: MORPHINE SULFATE 4 MG/ML CPJ (NOT FOR IM USE) IV ONE (02:30)
[2023-02-05] MEDS ORDERED: HYDRALAZINE 20MG/ML VIAL IV NR (03:30)
[2023-02-05] MEDS ORDERED: HYDRALAZINE 20MG/ML VIAL IV ONE (03:30)
[2023-02-05 04:05] LABS: CLARITY URINE CLEAR (CLEAR); COLOR URINE YELLOW (YELLOW); GLUCOSE URINE NEGATIVE (NEGATIVE); KETONES URINE TRACE (NEGATIVE); LEUKOCYTE ESTERASE URINE TRACE (NEGATIVE); NITRITE URINE NEGATIVE (NEGATIVE); OCCULT BLOOD URINE NEGATIVE (NEGATIVE); PH URINE 6.5 (4.5-8.0); PROTEIN URINE NEGATIVE (NEGATIVE); SPECIFIC GRAVITY URINE 1.011 (1.005-1.030)
[2023-02-05 04:07] LABS: BACTERIA URINE NONE SEEN; RBC URINE NONE SEEN /hpf (0-2); SQUAMOUS EPITHELIAL CELL URINE NONE SEEN /lpf (RARE/1+); YEAST URINE NONE SEEN
[2023-02-05 05:42] VITALS: BP 138/78; PULSE 96; RESP 21; TEMP 98.4
== END 2023-02-05 05:54 | disposition short-term general hospital (02) ==
LOC: ER 20:38
DX: S01.81XA Laceration without foreign body of other part of head, initial encounter (principal); G40.909 Epilepsy, unspecified, not intractable, without status epilepticus; E11.9 Type 2 diabetes mellitus without complications; F10.10 Alcohol abuse, uncomplicated; I10 Essential (primary) hypertension; F17.200 Nicotine dependence, unspecified, uncomplicated; X58.XXXA Exposure to other specified factors, initial encounter; Y93.89 Activity, other specified; Y92.89 Other specified places as the place of occurrence of the external cause; Y99.8 Other external cause status; Y90.9 Presence of alcohol in blood, level not specified
CPT/HCPCS: 12004; 36415; 70486; 71045; 80053; 81003; 82962; 83605; 83880; 84484; 85025; 87426; 90471; 90715; 93005; 96365; 96366; 96368; 96375; 96376; 99285; C9803; J0360; J0456; J0696; J2270; J2405; J3490; J7030